=== PATIENT | female | born 1970 | race Caucasian/White ===

== ENCOUNTER 2022-05-03 09:59 | Observation (INO) | payer OTHER, MEDICARE ==
[~2022-05-03] VITALS: Ht 162.6 cm; Wt 93.0 kg
[~2022-05-03 09:59] MED LIST: ALPR.5 PO; ALPR1 PO; AMBIEN; ARIP10 PO; Antivert25 MG PO; Augmentin 875-1 EACH PO; CARI350 PO; CODACE30 PO; DIAZ5 PO; EFFEXOR; FLUO20 PO; GABA300 PO; HYDACE10B PO; HYDACE5; HYDACE5 PO; IBUP800 PO; LAMICTAL; LAMO100 PO; OXCA300 PO; OXYACE5T PO; PRED5 PO; SEROQUEL; VENL75; Zofran Odt4 MG SL; [UNRECOGNIZED DRUG - REMARK]
[2022-05-03 11:40] LABS: BASOPHILS ABSOLUTE AUTO 0.04 K/mm3 (0.00-0.23); BASOPHILS PERCENT AUTO 0 % (0-2); EOSINOPHILS ABSOLUTE AUTO 0.19 K/mm3 (0.00-0.68); EOSINOPHILS PERCENT AUTO 2 % (0-6); Hemoglobin 14.1 g/dL (11.5-16.0); IMMATURE GRAN ABSOLUTE AUTO 0.04 K/mm3 (0.00-0.10); IMMATURE GRAN PERCENT AUTO 0 % (0-1); LYMPHOCYTES ABSOLUTE AUTO 2.28 K/mm3 (0.84-5.20); LYMPHOCYTES PERCENT AUTO 25 % (21-46); MONOCYTES ABSOLUTE AUTO 0.53 K/mm3 (0.16-1.47); MONOCYTES PERCENT AUTO 6 % (4-13); Mean Corpuscular HGB 31.9 pg (26.0-34.0); Mean Corpuscular HGB Conc 32.8 g/dL (31.5-36.5); Mean Corpuscular Volume 97 fL (80-100); Mean Platelet Volume 9.7 fL (9.1-12.4); NEUTROPHILS ABSOLUTE AUTO 5.88 K/mm3 (1.96-9.15); NEUTROPHILS PERCENT AUTO 66 % (41-73); Platelet Count 341 K/mm3 (150-400); RDW Standard Deviation 49.9 fL (35.1-46.3); Red Blood Cell Count 4.42 M/mm3 (3.80-5.20); White Blood Cell Count 8.96 K/mm3 (4.00-11.30)
[2022-05-03 11:56] LABS: Albumin, Blood 3.8 g/dL (3.4-5.0); Albumin/Globulin Ratio 1.1 (0.8-1.8); Bilirubin, Total 0.2 mg/dL (0.1-1.0); Bun/Creatinine Ratio 8.1 (12.0-20.0); Calcium, Blood 9.9 mg/dL (8.5-10.1); Creatinine, Blood 0.74 mg/dL (0.40-1.00); Globulin, Blood 3.6 g/dL (2.2-4.0); Potassium, Blood 3.8 mmol/L (3.5-5.5); Total Protein, Blood 7.4 g/dL (6.4-8.2)
--- NOTE | 2022-05-04 05:53 | NUR ---
SHIFT SUMMARY PATIENT ARRIVED TO ROOM 337 VIA STRETCHER. WAS ABLE TO SELF TRANSFER TO BED WITH MINIMAL ASSISTANCE. SOME LEFT SIDED WEAKNESS, UNSTEADY GAIT, AND OCCASIONAL EXPRESSIVE APHASIA NOTED ON INITIAL ASSESSMENT. DEFICITS HAVE BEEN IMPROVING THE NIGHT HAS PROGRESSED AND PATIENT IS ABLE TO INDEPENDENTLY AMBULATE WITH A STEADY GAIT NOW. NO ACUTE ISSUES NOTED OVERNIGHT. CALL LIGHT WITHIN REACH. REPORT GIVEN TO ONCOMING RN.
[2022-05-04 06:19] LABS: Cholesterol 204 mg/dL (50-200); HDL Cholesterol 41 mg/dL (>39); Low Density Lipoprotein Chol 123 mg/dL (0-110); Triglycerides 199 mg/dL (30-160); Very Low Density Lipoprot Chol 39 mg/dL (6-32)
--- NOTE | 2022-05-04 09:00 | NUR ---
PT PLEASANT COOP A/O X3, PRESENTS VERY TIRED, BARELY OPENING EYES THIS AM. STATES THIS IS UNUSUAL FOR HER. STATES FEELS OKAY. LEFT ARM AND LEG SOME WEAKER THAN RIGHT. 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 DENIES PAIN. NO FACIAL DROOP NOTED. H/R REG, NO MURMUR NOTED. PER TELE NSR AT 62. DID DROP DOWN LAST VALERIA TO 47-51 FOR SHORT TIME. ALSO HAD 2.5 SEC PAUSE LAST VALERIA. NO EDEMA NOTED. LUNGS CLEAR, RESP EASY, UNLABORED. ON R.A. BT X4 LAST BM LAST NITE PER PT. VOIDS INDEPENDANT SBA TO BATHROOM. BED IN LOW POSITION, CALL LITE IN REACH, CALLS APPROP
--- NOTE | 2022-05-04 12:06 | NUR ---
PT REPORTS STOPPED MOST OF HER PILLS 2-3 WEEKS AGO. NOT SURE OF WHAT THEY ARE, BUT SOME BP AND SOME PSYCH TYPES. STOPPED MIDODRINE AND WATER PILLS AND ABILIFY AND OTHER PER PT. CALLED DR BRICENO RE PT BEING VEEREY TIRED THIS AM. PT STATES NOT NORMAL. HE NOW AWARE, DID ORDER STAT MRI W & W/O OF HEAD. NO OTHER ORDERS.
[2022-05-04] MEDS ORDERED: ASPI81CH PO (16:42)
[2022-05-04] MEDS ORDERED: ATOR40TA PO (16:43)
[2022-05-04] MEDS ORDERED: GABA300 PO (16:43)
[2022-05-04] MEDS ORDERED: METPHE5 PO (16:44)
[2022-05-04] MEDS ORDERED: VENL37.5ER PO (16:45)
--- NOTE | 2022-05-04 17:54 | NUR ---
DISCHARGE REVIEWED WITH PT. SHE VERBALIZED UNDERSTANDING MEDS AND INSTRUCT. WILL EAT DINNER AND WHEN DAUGHTER HERE, WILL PULL IV AND TELE AND DELIVER PT TO DOOR
--- NOTE | 2022-05-04 18:27 | NUR ---
PT WHEELED TO DOOR BY AIDE AT [id number]
--- NOTE | 2022-05-04 18:46 | NUR ---
IV IS PULLED AND INTACT. NO REDNESS.
== END 2022-05-04 18:40 | disposition home health service (06) ==
LOC: ER 09:59 → MEDS 10:00 → ER 19:05 → MEDS 19:05 → ER 05-04 15:27 → MEDS 05-04 15:28
PROVIDERS: Nurse Practitioner Acute Care; Physician Assistant; ADMIT Internal Medicine
DX: G45.9 Transient cerebral ischemic attack, unspecified (principal); I10 Essential (primary) hypertension; G89.4 Chronic pain syndrome; M79.7 Fibromyalgia; F11.20 Opioid dependence, uncomplicated; F31.9 Bipolar disorder, unspecified; F43.10 Post-traumatic stress disorder, unspecified; E66.01 Morbid (severe) obesity due to excess calories; K21.9 Gastro-esophageal reflux disease without esophagitis; E78.5 Hyperlipidemia, unspecified; R73.03 Prediabetes; M54.16 Radiculopathy, lumbar region; G47.33 Obstructive sleep apnea (adult) (pediatric); Z91.14 Patient's other noncompliance with medication regimen; Z88.5 Allergy status to narcotic agent; Z79.899 Other long term (current) drug therapy
CPT/HCPCS: 36415; 70450; 70496; 70498; 70551; 80053; 80061; 85025; 93005; 93010; 97161; 99285-25; A9270; G0378; J1650; J7030; Q9967

== ENCOUNTER → 2022-06-14 | Outpatient (CLI) | payer OTHER, MEDICARE ==
[~2022-06-14] MED LIST changes: +ASPI81CH PO; +ATOR40TA PO; +METPHE5 PO; +VENL37.5ER PO
[2022-06-14 12:35] LABS: BASOPHILS ABSOLUTE AUTO 0.05 K/mm3 (0.00-0.23); BASOPHILS PERCENT AUTO 1 % (0-2); EOSINOPHILS ABSOLUTE AUTO 0.29 K/mm3 (0.00-0.68); EOSINOPHILS PERCENT AUTO 3 % (0-6); Hematocrit 39.4 % (33.0-51.0); Hemoglobin 13.3 g/dL (11.5-16.0); IMMATURE GRAN ABSOLUTE AUTO 0.04 K/mm3 (0.00-0.10); IMMATURE GRAN PERCENT AUTO 0 % (0-1); LYMPHOCYTES ABSOLUTE AUTO 2.32 K/mm3 (0.84-5.20); LYMPHOCYTES PERCENT AUTO 23 % (21-46); MONOCYTES ABSOLUTE AUTO 0.49 K/mm3 (0.16-1.47); MONOCYTES PERCENT AUTO 5 % (4-13); Mean Corpuscular HGB 32.4 pg (26.0-34.0); Mean Corpuscular HGB Conc 33.8 g/dL (31.5-36.5); Mean Corpuscular Volume 96 fL (80-100); Mean Platelet Volume 9.8 fL (9.1-12.4); NEUTROPHILS ABSOLUTE AUTO 7.12 K/mm3 (1.96-9.15); NEUTROPHILS PERCENT AUTO 69 % (41-73); Platelet Count 333 K/mm3 (150-400); RDW Coefficient Variation 13.9 % (11.7-14.2); RDW Standard Deviation 48.5 fL (35.1-46.3); Red Blood Cell Count 4.11 M/mm3 (3.80-5.20); White Blood Cell Count 10.31 K/mm3 (4.00-11.30)
[2022-06-14 12:40] LABS: Bun/Creatinine Ratio 13.2 (12.0-20.0); Calcium, Blood 9.2 mg/dL (8.5-10.1); Creatinine, Blood 0.76 mg/dL (0.40-1.00); Potassium, Blood 3.7 mmol/L (3.5-5.5)
== END ==
LOC: LAB SHORT 12:30
PROVIDERS: Physician Assistant
DX: E86.0 Dehydration (principal); N39.0 Urinary tract infection, site not specified; R11.2 Nausea with vomiting, unspecified
CPT/HCPCS: 80048; 85025; 87077; 87086; 87186

== ENCOUNTER → 2022-07-16 | Outpatient (CLI) | payer OTHER, MEDICARE | LOC: LAB SHORT 10:40 → LAB 10:40 | DX: L57.8 Other skin changes due to chronic exposure to nonionizing radiation (principal); L73.2 Hidradenitis suppurativa; L08.9 Local infection of the skin and subcutaneous tissue, unspecified; B37.2 Candidiasis of skin and nail; A69.20 Lyme disease, unspecified ==

== ENCOUNTER 2023-04-27 22:16 | Emergency (ER) | payer MEDICARE, OTHER ==
[~2023-04-27] VITALS: Ht 162.6 cm; Wt 72.6 kg
[~2023-04-27 22:16] MED LIST changes: +BUTALB-ACETAMI1 EAC5 PO; +Buspirone HCl15 MG PO; +ESTRADIOL1 M1 PO; +MIRT30 PO; +VENL150ER PO; +VENL75ER PO
[2023-04-27 22:40] VITALS: BP 132/92
[2023-04-27] MEDS ORDERED: BACL20 PO (23:59)
== END 2023-04-28 00:20 | disposition home or self-care (01) ==
LOC: ER 22:16
DX: T21.21XA Burn of second degree of chest wall, initial encounter (principal); I10 Essential (primary) hypertension; F17.200 Nicotine dependence, unspecified, uncomplicated; Z88.5 Allergy status to narcotic agent; Z79.82 Long term (current) use of aspirin; X12.XXXA Contact with other hot fluids, initial encounter
CPT/HCPCS: 99283

== ENCOUNTER 2023-05-01 19:45 | Emergency (ER) | payer MEDICARE, OTHER ==
[~2023-05-01] VITALS: Ht 170.2 cm; Wt 81.7 kg
[~2023-05-01 19:45] MED LIST changes: +BACL20 PO
[2023-05-01 21:19] LABS: U Amphetamine Screen Not Detected; U Barbituate Screen DETECTED; U Benzodiazapine Screen DETECTED; U Buprenorphine Screen Not Detected; U Cannabinoids Screen Not Detected; U Cocaine Screen Not Detected; U Methadone Screen Not Detected; U Methamphetamine Screen Not Detected; U Opiates Screen Not Detected; U Oxycodone Screen DETECTED; U Phencyclidine Screen Not Detected; U Propoxyphene Screen Not Detected
[2023-05-01 22:14] LABS: BASOPHILS ABSOLUTE AUTO 0.03 K/mm3 (0.00-0.23); BASOPHILS PERCENT AUTO 0 % (0-2); EOSINOPHILS PERCENT AUTO 3 % (0-6); Hematocrit 38.8 % (33.0-51.0); Hemoglobin 13.5 g/dL (11.5-16.0); IMMATURE GRAN ABSOLUTE AUTO 0.01 K/mm3 (0.00-0.10); IMMATURE GRAN PERCENT AUTO 0 % (0-1); LYMPHOCYTES ABSOLUTE AUTO 2.68 K/mm3 (0.84-5.20); LYMPHOCYTES PERCENT AUTO 37 % (21-46); MONOCYTES ABSOLUTE AUTO 0.54 K/mm3 (0.16-1.47); MONOCYTES PERCENT AUTO 7 % (4-13); Mean Corpuscular HGB 34.2 pg (26.0-34.0); Mean Corpuscular HGB Conc 34.8 g/dL (31.5-36.5); Mean Corpuscular Volume 98 fL (80-100); Mean Platelet Volume 9.8 fL (9.1-12.4); NEUTROPHILS ABSOLUTE AUTO 3.83 K/mm3 (1.96-9.15); NEUTROPHILS PERCENT AUTO 53 % (41-73); Platelet Count 247 K/mm3 (150-400); RDW Coefficient Variation 12.5 % (11.7-14.2); RDW Standard Deviation 44.7 fL (35.1-46.3); Red Blood Cell Count 3.95 M/mm3 (3.80-5.20); White Blood Cell Count 7.29 K/mm3 (4.00-11.30)
[2023-05-01 22:33] LABS: Albumin, Blood 3.2 g/dL (3.4-5.0); Bilirubin, Total 0.1 mg/dL (0.1-1.0); Bun/Creatinine Ratio 21.3 (12.0-20.0); Calcium, Blood 8.8 mg/dL (8.5-10.1); Creatinine, Blood 0.61 mg/dL (0.40-1.00); Globulin, Blood 3.1 g/dL (2.2-4.0); Potassium, Blood 3.8 mmol/L (3.5-5.5); Total Protein, Blood 6.3 g/dL (6.4-8.2)
[2023-05-01 23:00] VITALS: BP 123/79
== END 2023-05-01 23:09 | disposition home or self-care (01) ==
LOC: ER 19:45
PROVIDERS: Emergency Medicine
DX: R41.82 Altered mental status, unspecified (principal); Z88.5 Allergy status to narcotic agent; Z79.899 Other long term (current) drug therapy; I10 Essential (primary) hypertension; Z86.59 Personal history of other mental and behavioral disorders; F17.210 Nicotine dependence, cigarettes, uncomplicated; K21.9 Gastro-esophageal reflux disease without esophagitis; E78.5 Hyperlipidemia, unspecified; G47.33 Obstructive sleep apnea (adult) (pediatric)
CPT/HCPCS: 51701; 70450; 80053; 85025; 99284-25; G0480

== ENCOUNTER → 2023-07-29 | Outpatient (CLI) | payer MEDICARE, OTHER | LOC: LAB 08:30 → LAB SHORT 08:30 | DX: J44.1 Chronic obstructive pulmonary disease with (acute) exacerbation (principal) | CPT/HCPCS: 87015; 87116; 87206 ==

== ENCOUNTER → 2024-05-09 | Outpatient (CLI) | payer OTHER ==
[~2024-05-09] MED LIST changes: +ALBU90OI INH; +Diflucan150 MG PO; +NALOXONE H0.4 MG/1 M IM; +OXYC10TA19 PO; +PANT40 PO; +PROM25 PO; +SUDOGEST PO; +WEGOVY0.25 MG/0. SC
== END ==
LOC: LAB SHORT 18:00 → LAB 18:00
DX: B35.9 Dermatophytosis, unspecified (principal)
CPT/HCPCS: 87252

== ENCOUNTER 2024-05-20 01:52 | Day surgery (SDC) | payer OTHER ==
[~2024-05-20 01:52] MED LIST changes: -ALBU90OI INH; -Diflucan150 MG PO; -NALOXONE H0.4 MG/1 M IM; -OXYC10TA19 PO; -PANT40 PO; -PROM25 PO; -SUDOGEST PO; -WEGOVY0.25 MG/0. SC
[2024-05-20] MEDS ORDERED: DiphenhydrAMINE HCL 25 MG Cap PO SCH (06:55)
[2024-05-20] MEDS ORDERED: MethylPREDNISolone Sod Succ 40 MG VIAL IV SCH (06:55)
[2024-05-20] MEDS ORDERED: Acetaminophen 325 MG TABLET PO SCH (06:55)
[2024-05-20 08:33] VITALS: BP 117/70
[2024-05-20] MEDS ORDERED: Diflucan150 MG PO (08:41)
[2024-05-20] MEDS ORDERED: Loratadine 10 MG Tab PO SCH (09:00)
[2024-05-20] MEDS ORDERED: Infliximab-DYYB 200 MG in NS 250 ML IV SCH ×2 (09:05→09:30)
[2024-05-20 09:49] VITALS: BP 106/68
[2024-05-20 10:04] VITALS: BP 115/61
[2024-05-20 10:26] VITALS: BP 110/76
[2024-05-20 10:35] VITALS: BP 87/67
[2024-05-20 11:07] VITALS: BP 110/70
[2024-05-20] MEDS ORDERED: ALBU90OI INH (11:25)
[2024-05-20] MEDS ORDERED: NALOXONE H0.4 MG/1 M IM (11:26)
[2024-05-20] MEDS ORDERED: OXYC10TA19 PO (11:27)
[2024-05-20] MEDS ORDERED: PANT40 PO (11:27)
[2024-05-20] MEDS ORDERED: PROM25 PO (11:27)
[2024-05-20] MEDS ORDERED: WEGOVY0.25 MG/0. SC (11:28)
[2024-05-20] MEDS ORDERED: SUDOGEST PO (11:29)
== END 2024-05-20 11:45 | disposition home or self-care (01) ==
LOC: ATC 01:52
DX: M06.00 Rheumatoid arthritis without rheumatoid factor, unspecified site (principal); J45.909 Unspecified asthma, uncomplicated; E11.9 Type 2 diabetes mellitus without complications; E04.9 Nontoxic goiter, unspecified; I10 Essential (primary) hypertension; M19.90 Unspecified osteoarthritis, unspecified site; Z87.891 Personal history of nicotine dependence; Z88.5 Allergy status to narcotic agent; Z88.8 Allergy status to other drugs, medicaments and biological substances; Z79.899 Other long term (current) drug therapy
CPT/HCPCS: 96413; 96415; A9270; J7050; Q5103

== ENCOUNTER → 2024-12-21 | Outpatient (CLI) | payer BC, OTHER ==
[~2024-12-21] MED LIST changes: +ALBU90OI INH; +CLIN150 PO; +Diflucan150 MG PO; +NALOXONE H0.4 MG/1 M IM; +OXYC10TA19 PO; +PANT40 PO; +PROM25 PO; +SUDOGEST PO; +WEGOVY0.25 MG/0. SC
== END ==
LOC: LAB 14:10 → LAB SHORT 14:10
DX: M79.651 Pain in right thigh (principal)
CPT/HCPCS: 85379

== ENCOUNTER → 2025-08-29 | Outpatient (CLI) | payer OTHER, BC ==
[2025-08-30 11:25] LABS: Bacterial Vaginosis PCR Negative (NEGATIVE); Candida glabrata-krusei, PCR NOT DETECTED (NOT DETECT)
[2025-08-30 12:09] LABS: Candida Group, PCR DETECTED (NOT DETECT)
== END ==
LOC: LAB SHORT 18:56 → LAB 18:56
PROVIDERS: Nurse Practitioner Family
DX: B37.31 Acute candidiasis of vulva and vagina (principal)
CPT/HCPCS: 81515